=== PATIENT | female | born 1980 | race Caucasian/White ===

== ENCOUNTER 2018-11-26 14:46 | Emergency (ER) | payer OTHER ==
[~2018-11-26] VITALS: Ht 157.5 cm; Wt 108.4 kg
[2018-11-26 14:55] VITALS: Ht 157.5 cm; Wt 108.4 kg
[2018-11-26 16:17] LABS: microscopic required? NO
[2018-11-26 16:21] LABS: BASOPHIL % 1.9 % (0-2); PLATELET COUNT 302 x10^3mcL (130-400)
[2018-11-26 16:22] LABS: urine erythrocyte NEGATIVE (NEGATIVE)
[2018-11-26 16:26] LABS: RED CELL DISTRIBUTION WIDTH 14.9 % (11.5-14.5)
[2018-11-26 16:32] LABS: CALCIUM 9.1 mg/dL (8.5-10.1); CARBON DIOXIDE 30.4 mmol/L (21-32); CHLORIDE SERUM 104 mmol/L (98-107); CREATININE SERUM 0.7 mg/dL (0.6-1.0); GFR1 > 60 mL/min; GLUCOSE SERUM 122 mg/dL (74-106); POTASSIUM SERUM 4.4 mmol/L (3.5-5.1); SODIUM SERUM 140 mmol/L (136-145)
[2018-11-26 16:37] LABS: ALKALINE PHOSPHATASE 92 U/L (46-116); ALT/SGPT 20 U/L (14-59); AST/SGOT 11 U/L (15-37); BILIRUBIN TOTAL 0.23 mg/dL (0.20-1.00)
[2018-11-26 16:40] LABS: ALBUMIN 3.2 g/dL (3.4-5.0)
[2018-11-26 16:47] LABS: FREE T4 0.88 ng/dL (0.76-1.46); FREE THYROXINE INDEX 2.7 ug/dL (1.4-4.5); T4(THYROXINE) 8.4 ug/dL (4.7-13.3)
[2018-11-26 17:06] LABS: T3 TOTAL 0.79 ng/mL
[2018-11-26 18:32] VITALS: BP 110/66
== END 2018-11-26 18:32 | disposition home or self-care (01) ==
LOC: ED 14:46
PROVIDERS: Emergency Medicine
DX: R60.1 Generalized edema (principal); T38.3X5A Adverse effect of insulin and oral hypoglycemic [antidiabetic] drugs, initial encounter; Y92.89 Other specified places as the place of occurrence of the external cause; E11.9 Type 2 diabetes mellitus without complications; Z88.1 Allergy status to other antibiotic agents
CPT/HCPCS: 36415; 84439; Q0092

== ENCOUNTER 2020-11-06 20:37 | Emergency (ER) | payer OTHER ==
[~2020-11-06] VITALS: Ht 157.5 cm; Wt 86.6 kg
[2020-11-06 20:51] VITALS: BP 112/79; Ht 157.5 cm; Wt 86.6 kg
[2020-11-06] MEDS ORDERED: MOT600 PO (22:46)
== END 2020-11-06 22:55 | disposition home or self-care (01) ==
LOC: ED 20:37
DX: E11.65 Type 2 diabetes mellitus with hyperglycemia (principal); G44.209 Tension-type headache, unspecified, not intractable; Z98.890 Other specified postprocedural states; Z88.8 Allergy status to other drugs, medicaments and biological substances
CPT/HCPCS: 82962; J1815; J1885